=== PATIENT | female | born 1985 | race Caucasian/White ===

== ENCOUNTER 2018-12-26 10:46 | Emergency (ER) | payer MEDICAID ==
--- NOTE | 2018-12-26 11:41 | CR ---
Clinical history: 33-year-old female right elbow pain (cannot straight). Fell while "doing dishes" last night. Interpretation: 3 views right elbow abnormal. Large right elbow joint effusion (elevation of anterior and posterior fat pads"). Subtle cortical irregularity radial head with faint lucent line proximal diametaphysis suggesting occult nondisplaced fracture. No sign of other fracture or dislocation right elbow. No foreign bodies or inflammatory periostitis.
[2018-12-26 11:51] VITALS: BP 97/36
[2018-12-26] MEDS ORDERED: Acetaminophen/HYDROcodone 325-10 MG Tab PO ONE (13:13)
--- NOTE | 2018-12-26 13:38 | EDM.PDOC ---
Scribed by Karen Anderson 12/26/18 1304 for Dylan Harley MD ED HPI GENERAL MEDICAL PROBLEM - General Chief Complaint: Upper Extremity Injury/Pain Stated Complaint: ARM INJURY [id number] Time Seen by Provider: 12/26/18 12:00 Source of Information: Reports: Patient, RN, RN Notes Reviewed History Limitations: Reports: No Limitations - History of Present Illness INITIAL COMMENTS - FREE TEXT/NARRATIVE: Pt c/o right elbow pain sustained last night when she fell in the kitchen doing dishes. Pt states she cannot bent or straighten the right elbow. Denies any other injury. Pt rates the pain 04/03. Onset: Sudden Onset Date: 12/25/18 Duration: Constant Location: Reports: Upper Extremity, Right Quality: Reports: Ache Severity: Severe Improves with: Reports: Immobilization Worsens with: Reports: Movement Associated Symptoms: Reports: No Other Symptoms Right Elbow Pain Score (Numeric/FACES): 9 - Related Data Allergies Allergy/AdvReac Type Severity Reaction Status Date / Time No Known Allergies Allergy Verified 12/26/18 11:17 Home Meds: Home Meds . [No Known Home Meds] 12/26/18 [History] Past Medical History - Past Health History Medical/Surgical History: Denies Medical/Surgical History Social & Family History - Family History Family Medical History: Noncontributory - Living Situation & Occupation Living situation: Reports: with Family Review of Systems - Review of Systems Review Of Systems: ROS reveals no pertinent complaints other than HPI. ED EXAM, GENERAL - Physical Exam Exam: See Below Exam Limited By: No Limitations General Appearance: Alert, WD/WN, No Apparent Distress Head: Atraumatic, Normocephalic Neck: Normal Inspection, Full Range of Motion Respiratory/Chest: No Respiratory Distress Cardiovascular: Normal Peripheral Pulses Back Exam: Normal Inspection Extremities: Joint Swelling (Rt elbow), Arm Pain (Rt elbow with soft tissue swelling and tenderness, no visible bruising or deformity.), Limited Range of Motion (Rt elbow) Neurological: Alert, Oriented, Normal Cognition, No Motor/Sensory Deficits Psychiatric: Normal Affect, Normal Mood Skin Exam: Warm, Dry, Intact, Normal Color, No Rash ED TRAUMA EXTREMITY PROCEDURES - Splinting Right Upper Extremity Splint Site: Rt elbow Pre-Procedure NV Status: Normal Post-Procedure NV Status: Normal Splint Material: Fiberglass Splint Design: Posterior (long arm) Applied & Form Fitted By: Provider Provider Post-Splint Application NV Check: NV Status Normal, Good Position Complications: No Course - Vital Signs Last Recorded V/S: Last Vital Signs Temp 36.0 C 12/26/18 11:14 Pulse 79 12/26/18 11:14 Resp 14 12/26/18 11:14 BP 97/36 L 12/26/18 11:14 Pulse Ox 98 12/26/18 11:14 - Orders/Labs/Meds Orders: Active Orders 24 hr Category Date Time Status Splinting [RC] ASDIRECTED Care 12/26/18 13:13 Active DME for Discharge [COMM] Routine Oth 12/26/18 13:14 Ordered Meds: Medications Discontinued Medications Generic Name Dose Route Start Last Admin Trade Name Freq PRN Reason Stop Dose Admin Hydrocodone Bitart/Acetaminophen 1 tab 12/26/18 13:13 12/26/18 13:26 W[place]bee 325-10 Mg PO 12/26/18 13:14 1 tab ONETIME ONE Administration - Radiology Interpretation Free Text/Narrative:: Right elbow x-ray: Large right elbow joint effusion (elevation of anterior and posterior fat pads". Subtle cortical irregularity radial head with faint lucent line proximal diametaphysis suggesting occult nondisplaced fracture. See rad report. Departure - Departure Time of Disposition: 13:38 Disposition: Home, Self-Care 01 Condition: Good Clinical Impression: Closed fracture of head of right radius Qualifiers: Encounter type: initial encounter Fracture alignment: nondisplaced Qualified Code(s): S52.124A - Nondisplaced fracture of head of right radius, initial encounter for closed fracture - Discharge Information *PRESCRIPTION DRUG MONITORING PROGRAM REVIEWED*: No *COPY OF PRESCRIPTION DRUG MONITORING REPORT IN PATIENT BELLA: No Instructions: Radial Head Fracture, [id number] Referrals: PCP,None [Ordering Only Provider] - Forms: ED Department Discharge Additional Instructions: Rx: Witherbee 5mg/325mg *Do not drive while under the influence this medication. Do not remove the splint. Follow up with orthopedic surgeon next week. Call [phone] to schedule appointment. - My Orders Last 24 Hours: My Active Orders 12/26/18 13:13 Splinting [RC] ASDIRECTED 12/26/18 13:14 DME for Discharge [COMM] Routine - Assessment/Plan Last 24 Hours: My Active Orders 12/26/18 13:13 Splinting [RC] ASDIRECTED 12/26/18 13:14 DME for Discharge [COMM] Routine I have read and agree with the documentation that has been completed regarding this visit. By signing this record, I attest that the documentation was completed in my physical presence and is an accurate record of the encounter.
== END 2018-12-26 13:45 | disposition home or self-care (01) ==
LOC: DL.ED 10:46
DX: S52.124A Nondisplaced fracture of head of right radius, initial encounter for closed fracture (principal); W19.XXXA Unspecified fall, initial encounter; Y93.G1 Activity, food preparation and clean up; Y92.000 Kitchen of unspecified non-institutional (private) residence as the place of occurrence of the external cause
CPT/HCPCS: 29105; 73080; 99283; A9270